=== PATIENT | male | born 1940 | race Caucasian/White ===

== ENCOUNTER 2017-07-18 17:11 | Emergency (ER) | payer MEDICARE, OTHER ==
[~2017-07-18] VITALS: Ht 165.1 cm; Wt 72.7 kg
[~2017-07-18 17:11] MED LIST: ASPI-611; LATA2.5D6 EACHEYE; NEBI10TA4 PO; ROSU10TA PO
[2017-07-18] MEDS ORDERED: hydrALAZINE 20mg/ml inj. IV ONE (17:20)
[2017-07-18] MEDS ORDERED: aspirin 81mg tab.chew PO ONE (17:20)
[2017-07-18] MEDS ORDERED: lisinopril 10 MG tablet PO ONE (17:20)
[2017-07-18 17:35] LABS: BASOPHILS % (AUTO) 0.2 % (0-1); EOSINOPHILS # (AUTO) 0.3 X10'3 (0-0.9); EOSINOPHILS % (AUTO) 4.4 % (0-6); HEMATOCRIT 42.4 % (42.0-52.0); HEMOGLOBIN 14.7 g/dl (14.0-17.9); LYMPHOCYTES # (AUTO) 1.2 X10'3 (1.1-4.8); LYMPHOCYTES % (AUTO) 18.9 % (21-51); MEAN CORPUSCULAR HEMOGLOBIN 33.1 PG (27.0-31.0); MEAN CORPUSCULAR HGB CONC 34.7 % (33.0-36.5); MEAN CORPUSCULAR VOLUME 95.3 FL (78-98); MEAN PLATELET VOLUME 7.4 FL (7.4-10.4); MONOCYTES # (AUTO) 0.6 X10'3 (0-0.9); MONOCYTES % (AUTO) 9.5 % (2-12); NEUTROPHILS # (AUTO) 4.3 X10'3 (1.8-7.7); PLATELET COUNT 178 X10'3 (140-440); RED BLOOD COUNT 4.44 X10'6 (4.70-6.10); RED CELL DISTRIBUTION WIDTH 13.2 % (11.5-14.5); WHITE BLOOD COUNT 6.4 X10'3 (4.5-11.0)
[2017-07-18 18:04] LABS: ALANINE AMINOTRANSFERASE 33 U/L (12-78); ALBUMIN 3.1 G/DL (3.4-5.0); ALBUMIN/GLOBULIN RATIO 0.7 (1.1-1.5); ALKALINE PHOSPHATASE 67 IU/L (46-116); ANION GAP 11 (8-16); ASPARTATE AMINO TRANSFERASE 17 U/L (10-37); BILIRUBIN,TOTAL 0.5 MG/DL (0.1-1.0); BLOOD UREA NITROGEN 13 MG/DL (7-18); BUN/CREATININE RATIO 15.9 (5.4-32.0); CALCIUM 8.4 MG/DL (8.5-10.1); CHLORIDE 103 MMOL/L (99-107); CREATININE 0.82 MG/DL (0.60-1.10); POTASSIUM 3.5 MMOL/L (3.5-5.1); SODIUM 139 MMOL/L (135-145); TOTAL CARBON DIOXIDE 24.9 MMOL/L (24-32); TOTAL PROTEIN 7.3 G/DL (6.4-8.2); eGFR > 90 ML/MIN
[2017-07-18 18:05] LABS: GLUCOSE 185 MG/DL (70-104)
[2017-07-18] MEDS ORDERED: LISI40TA4 PO (18:14)
[2017-07-18] MEDS ORDERED: HYDR-4069 PO (18:14)
[2017-07-18 18:23] VITALS: BP 135/85
== END 2017-07-18 18:25 | disposition home or self-care (01) ==
LOC: ER 17:12
DX: I10 Essential (primary) hypertension (principal); I25.10 Atherosclerotic heart disease of native coronary artery without angina pectoris; E78.00 Pure hypercholesterolemia, unspecified; Z88.0 Allergy status to penicillin; Z95.1 Presence of aortocoronary bypass graft; Z79.82 Long term (current) use of aspirin; Z79.899 Other long term (current) drug therapy
CPT/HCPCS: 36415; 71045; 80053; 83880; 84484; 85025; 93005; 96374; 99285; J0360